=== PATIENT | male | born 1995 | race Caucasian/White ===

== ENCOUNTER 2021-01-11 07:35 | Emergency (ER) | payer OTHER ==
[~2021-01-11] VITALS: Ht 167.6 cm; Wt 86.2 kg
[2021-01-11] MEDS ORDERED: KETOROLAC TROMETHAMINE 30 MG/ML VIAL IM STA (07:55)
[2021-01-11] MEDS ORDERED: CYCLOBENZAPRINE HCL 10 MG TAB PO ONE (08:00)
[2021-01-11] MEDS ORDERED: IBUPROFEN600 MG PO (08:27)
[2021-01-11] MEDS ORDERED: CYCLOBENZAPRINE10 MG PO (08:27)
[2021-01-11] MEDS ORDERED: LIDOCAINE1 EAC1 TD (08:27)
[2021-01-11] MEDS ORDERED: SODIUM CHLORIDE 0.9% 250ML 250 ML ONE (10:39)
== END 2021-01-11 09:34 | disposition home or self-care (01) ==
LOC: FSED 07:42
DX: S39.012A Strain of muscle, fascia and tendon of lower back, initial encounter (principal); Y93.44 Activity, trampolining; Y92.007 Garden or yard of unspecified non-institutional (private) residence as the place of occurrence of the external cause
CPT/HCPCS: 72100; 99283; J1885; J7050